=== PATIENT | female | born 1935 | race Caucasian/White ===

== ENCOUNTER 2019-07-02 08:45 | Inpatient (IN) | payer BC ==
[~2019-07-02] VITALS: Ht 167.6 cm; Wt 62.6 kg
[2019-07-02] MEDS ORDERED: MORPHINE SULFATE 4 MG/ML CPJ (NOT FOR IM USE) IV STA (10:19)
[2019-07-02] MEDS ORDERED: ONDANSETRON HCL 4MG/2ML INJ IV STA (10:19)
[2019-07-02] MEDS ORDERED: SODIUM CHLORIDE 0.9% 1,000 ML IV ONE (10:19)
[2019-07-02 10:57] LABS: BASOPHILS % 0.4 % (0.0-2.0); EOSINOPHILS % 0.1 % (0.0-5.0); HEMOGLOBIN. 12.9 g/dL (12.0-16.0); LYMPHOCYTES % 9.1 % (20.0-50.0); MEAN CORPUSCULAR HEMOGLOBIN 33.5 pg (28.0-32.0); MEAN CORPUSCULAR VOLUME 98.9 fL (81.0-99.0); MEAN PLATELET VOLUME 8.8 fl (7.4-10.4); MONOCYTES % 7.2 % (2.0-8.0); NEUTROPHILS % 83.2 % (40.0-76.0); PLATELET 169 x1000/uL (130-400); RED BLOOD CELL COUNT 3.85 mill/uL (4.2-5.4); RED CELL DISTRIBUTION WIDTH 13.8 % (11.6-14.6)
[2019-07-02 11:03] LABS: CHLORIDE 108 mEq/L (98-107)
[2019-07-02 11:07] LABS: INR 1.1; PARTIAL THROMBOPLASTIN TIME 28.5 sec (23.4-31.0); PROTHROMBIN TIME 11.2 sec (9.6-11.0)
[2019-07-02] MEDS ORDERED: DIPHENHYDRAMINE 50MG/ML VIAL IV PRN (17:00)
[2019-07-02] MEDS ORDERED: DOCUSATE SODIUM 100MG CAPSULE PO PRN (17:00)
[2019-07-02] MEDS ORDERED: CLONIDINE 0.1MG TABLET PO PRN (17:00)
[2019-07-02] MEDS ORDERED: ONDANSETRON HCL 4MG/2ML INJ IV PRN (17:00)
[2019-07-02] MEDS ORDERED: MORPHINE SULFATE 2 MG/ML CPJ (NOT FOR IM USE) IV PRN (17:00)
[2019-07-02] MEDS ORDERED: MAGNESIUM/ALUMINUM HYDROXIDE/SIMETHICONE 30ML UDC PO PRN (17:00)
[2019-07-02] MEDS ORDERED: HYDRALAZINE 20MG/ML VIAL IV PRN (17:00)
[2019-07-02] MEDS ORDERED: IPRATROPIUM/ALBUTEROL 0.5-3(2.5)MG/3ML NEB NEB PRN (17:00)
[2019-07-02] MEDS ORDERED: GUAIFENESIN 200MG/10ML SUGAR FREE UDC PO PRN (17:00)
[2019-07-02] MEDS ORDERED: NA PHOS,M-B/NA PHOS,DI-BA ENEMA 118ML PR PRN (17:00)
[2019-07-02] MEDS ORDERED: AMLODIPINE 5MG TABLET PO SCH (20:22)
[2019-07-02] MEDS ORDERED: CEFTRIAXONE 1 G PREMIX 50 ML IV NR (20:23)
[2019-07-02] MEDS ORDERED: FAMOTIDINE 20MG TABLET PO NR (20:25)
[2019-07-02] MEDS ORDERED: MORPHINE SULFATE 10 MG/ML CPJ IM NR (22:00)
[2019-07-03 01:49] LABS: CREATINE KINASE 503 IU/L (26-192)
[2019-07-03 01:50] LABS: CREATINE KINASE MB FRACTION 4.3 ng/mL (0.5-3.6)
[2019-07-03 05:10] VITALS: BP 136/63
[2019-07-03 05:11] VITALS: BP 139/63
[2019-07-03] MEDS: DEXT 5%/0.45% NACL 1000ML 1,000 ML IV SCH ×2 (07:04→13:19)
[2019-07-03 08:00] VITALS: BP 145/55
[2019-07-03] MEDS: CEFTRIAXONE 1 G PREMIX 50 ML IV SCH (08:40)
[2019-07-03] MEDS: AMLODIPINE 5MG TABLET PO SCH (11:41)
[2019-07-03 12:00] VITALS: BP 115/49
[2019-07-03] MEDS: LORAZEPAM 0.5MG TABLET PO PRN ×2 (13:18→20:42)
[2019-07-03] MEDS: ENOXAPARIN 40MG/0.4ML SYR SUBCUT SCH (13:23)
[2019-07-03 20:00] VITALS: BP 160/72
[2019-07-03] MEDS: FAMOTIDINE 20MG TABLET PO SCH (20:35)
[2019-07-04] VITALS: BP 145/110
[2019-07-04 04:00] VITALS: BP 150/55
[2019-07-04 08:00] VITALS: BP 136/80
[2019-07-04] MEDS: CEFTRIAXONE 1 G PREMIX 50 ML IV SCH (08:00)
[2019-07-04] MEDS: AMLODIPINE 5MG TABLET PO SCH (08:59)
[2019-07-04 12:00] VITALS: BP 156/63
[2019-07-04] MEDS ORDERED: ATOR20TA65 MT (12:28)
[2019-07-04] MEDS ORDERED: LISI10TA5 MT (12:32)
[2019-07-04] MEDS ORDERED: ESCI5TAB12 MT (12:32)
[2019-07-04] MEDS ORDERED: DONE5TAB26 MT (12:32)
[2019-07-04] MEDS ORDERED: ALEN10TA7 PO (12:32)
[2019-07-04] MEDS ORDERED: QUET50TA MT (12:32)
[2019-07-04] MEDS ORDERED: MECLIZINE 25MG TABLET PO PRN (13:00)
[2019-07-04] MEDS: DONEPEZIL HCL 5MG TABLET PO SCH (13:30)
[2019-07-04] MEDS: ENOXAPARIN 40MG/0.4ML SYR SUBCUT SCH (14:00)
[2019-07-04 16:00] VITALS: BP 160/85
[2019-07-04 20:00] VITALS: BP 150/77
[2019-07-04] MEDS: FAMOTIDINE 20MG TABLET PO SCH (21:29)
[2019-07-04] MEDS: HALOPERIDOL 0.5MG TABLET PO SCH (21:29)
[2019-07-04] MEDS: DEXT 5%/0.45% NACL 1000ML 1,000 ML IV SCH (21:30)
[2019-07-05] VITALS (7 sets, daily range): BP systolic 112–161; BP diastolic 55–73
[2019-07-05] MEDS: CEFTRIAXONE 1 G PREMIX 50 ML IV SCH (08:00)
[2019-07-05] MEDS: AMLODIPINE 5MG TABLET PO SCH ×2 (09:02→21:00)
[2019-07-05] MEDS: HALOPERIDOL 0.5MG TABLET PO SCH ×2 (09:02→21:00)
[2019-07-05] MEDS: DONEPEZIL HCL 5MG TABLET PO SCH (09:02)
[2019-07-05] MEDS ORDERED: CEFTRIAXONE 1 G PREMIX 50 ML IV SCH (13:00)
[2019-07-05] MEDS: LEVOFLOXACIN 250MG TABLET PO SCH (13:06)
[2019-07-05] MEDS: ENOXAPARIN 40MG/0.4ML SYR SUBCUT SCH (13:35)
[2019-07-05 14:04] LABS: BASOPHILS % 0.6 % (0.0-2.0); EOSINOPHILS % 0.7 % (0.0-5.0); HEMOGLOBIN. 13.2 g/dL (12.0-16.0); LYMPHOCYTES % 13.7 % (20.0-50.0); MEAN CORPUSCULAR HEMOGLOBIN 33.4 pg (28.0-32.0); MEAN PLATELET VOLUME 8.8 fl (7.4-10.4); MONOCYTES % 10.2 % (2.0-8.0); NEUTROPHILS % 74.8 % (40.0-76.0); PLATELET 191 x1000/uL (130-400); RED BLOOD CELL COUNT 3.94 mill/uL (4.2-5.4); RED CELL DISTRIBUTION WIDTH 13.7 % (11.6-14.6)
[2019-07-05] MEDS: DEXT 5%/0.45% NACL 1000ML 1,000 ML IV SCH (15:00)
[2019-07-05] MEDS ORDERED: LORAZEPAM 2MG/ML CPJ IM STA (18:08)
[2019-07-05] MEDS: FAMOTIDINE 20MG TABLET PO SCH (21:00)
[2019-07-06 04:00] VITALS: BP 112/62
[2019-07-06] MEDS: DEXT 5%/0.45% NACL 1000ML 1,000 ML IV SCH (07:40)
[2019-07-06 08:00] VITALS: BP 135/66
[2019-07-06] MEDS: DONEPEZIL HCL 5MG TABLET PO SCH (08:49)
[2019-07-06] MEDS: HALOPERIDOL 0.5MG TABLET PO SCH (08:50)
[2019-07-06] MEDS: AMLODIPINE 5MG TABLET PO SCH (08:50)
[2019-07-06] MEDS ORDERED: POTASSIUM CHLORIDE 20MEQ TABLET SR PO NR (11:00)
[2019-07-06] MEDS: LEVOFLOXACIN 250MG TABLET PO SCH (13:24)
[2019-07-06] MEDS: ENOXAPARIN 40MG/0.4ML SYR SUBCUT SCH (13:49)
[2019-07-06] MEDS: LORAZEPAM 0.5MG TABLET PO PRN (16:13)
[2019-07-06] MEDS ORDERED: HALOPERIDOL 0.5MG TABLET PO SCH (21:00)
== END 2019-07-06 16:52 | DRG 563 ==
LOC: ER 08:45 → SUPCPDRO 16:43 → 7WST 18:28 → EDBEDREQ 18:31 → ENRESERV 21:17 → CANRESERV 21:17 → EDBEDREQSVC 22:48 → EDBEDREQTM 22:48 → ENRESERV 07-03 04:19
PROVIDERS: ADMIT Internal Medicine; ATTEND Internal Medicine
DX: S82.141A Displaced bicondylar fracture of right tibia, initial encounter for closed fracture (principal); N39.0 Urinary tract infection, site not specified; M62.82 Rhabdomyolysis; E86.0 Dehydration; F03.90 Unspecified dementia, unspecified severity, without behavioral disturbance, psychotic disturbance, mood disturbance, and anxiety; F32.9 Major depressive disorder, single episode, unspecified; I10 Essential (primary) hypertension; Z96.641 Presence of right artificial hip joint; W01.0XXA Fall on same level from slipping, tripping and stumbling without subsequent striking against object, initial encounter; M85.80 Other specified disorders of bone density and structure, unspecified site; J45.909 Unspecified asthma, uncomplicated; K44.9 Diaphragmatic hernia without obstruction or gangrene; Z95.0 Presence of cardiac pacemaker; Y93.89 Activity, other specified; Y92.098 Other place in other non-institutional residence as the place of occurrence of the external cause; Y99.8 Other external cause status; Z88.8 Allergy status to other drugs, medicaments and biological substances
CPT/HCPCS: 36415; 71045; 72170; 73502; 73552; 73560; 73590; 73610; 73700; 74176; 80048; 80053; 82550; 82553; 84484; 85025; 86850; 86900; 93005; 93306; 93880; 93970; 96361; 96372; 96374; 96375; 97162; 99285; J0696; J1200; J1650; J2060; J2270; J2405; J7030; J7040; L1830

== ENCOUNTER 2019-09-09 00:26 | Inpatient (IN) | payer BC, MEDICARE ==
[~2019-09-09] VITALS: Ht 162.6 cm; Wt 59.0 kg
[~2019-09-09 00:26] MED LIST: ALEN10TA25 PO; ATOR20TA65 MT; DONE5TAB26 MT; ESCI5TAB12 MT; LISI10TA5 MT; QUET50TA MT
[2019-09-09 01:27] LABS: BASOPHILS % 0.2 % (0.0-2.0); EOSINOPHILS % 0.7 % (0.0-5.0); HEMATOCRIT. 38.2 % (36.0-48.0); HEMOGLOBIN. 13.1 g/dL (12.0-16.0); LYMPHOCYTES % 13.3 % (20.0-50.0); MEAN CORPUSCULAR HEMOGLOBIN 33.3 pg (28.0-32.0); MEAN CORPUSCULAR VOLUME 97.4 fL (81.0-99.0); MEAN PLATELET VOLUME 8.7 fl (7.4-10.4); MONOCYTES % 7.8 % (2.0-8.0); PLATELET 161 x1000/uL (130-400); RED BLOOD CELL COUNT 3.93 mill/uL (4.2-5.4); RED CELL DISTRIBUTION WIDTH 13.6 % (11.6-14.6)
[2019-09-09 01:29] LABS: CHLORIDE 110 mEq/L (98-107)
[2019-09-09 02:00] LABS: PROTHROMBIN TIME 11.3 sec (9.6-11.0)
[2019-09-09 03:44] LABS: CLARITY URINE CLEAR (CLEAR); COLOR URINE YELLOW (YELLOW); KETONES URINE NEGATIVE (NEGATIVE); LEUKOCYTE ESTERASE URINE NEGATIVE (NEGATIVE); NITRITE URINE NEGATIVE (NEGATIVE); OCCULT BLOOD URINE NEGATIVE (NEGATIVE); PH URINE 6.5 (4.5-8.0); PROTEIN URINE NEGATIVE (NEGATIVE); SPECIFIC GRAVITY URINE 1.017 (1.005-1.030); UROBILINOGEN URINE 0.2 E.U./dL (0.2-1.0)
[2019-09-09 09:40] VITALS: BP 134/53
[2019-09-09 11:20] VITALS: BP 134/53
[2019-09-09] MEDS ORDERED: ASPI-1160 PO (11:30)
[2019-09-09] MEDS ORDERED: ZOLP5TAB8 PO (11:30)
[2019-09-09] MEDS ORDERED: ALEN35TA24 PO (11:30)
[2019-09-09] MEDS ORDERED: RISP1TAB26 PO (11:30)
[2019-09-09] MEDS ORDERED: AMLO5TAB88 PO (11:30)
[2019-09-09 12:00] VITALS: BP 147/65
[2019-09-09 12:13] VITALS: BP 147/65
== END 2019-09-09 12:52 | disposition home health service (06) | DRG 149 ==
LOC: ER 00:26 → EDBEDREQTM 01:09 → 7WST 02:28 → EDBEDREQTM 02:39 → EDBEDREQ 02:39 → ENRESERV 07:49
PROVIDERS: ADMIT Internal Medicine; ATTEND Internal Medicine
DX: R42 Dizziness and giddiness (principal); E86.0 Dehydration; F03.90 Unspecified dementia, unspecified severity, without behavioral disturbance, psychotic disturbance, mood disturbance, and anxiety; F31.9 Bipolar disorder, unspecified; I10 Essential (primary) hypertension; I25.10 Atherosclerotic heart disease of native coronary artery without angina pectoris; J45.909 Unspecified asthma, uncomplicated; R26.9 Unspecified abnormalities of gait and mobility; W06.XXXA Fall from bed, initial encounter; Y93.89 Activity, other specified; Y92.89 Other specified places as the place of occurrence of the external cause; Y99.8 Other external cause status; Z88.8 Allergy status to other drugs, medicaments and biological substances; Z79.899 Other long term (current) drug therapy; Z95.0 Presence of cardiac pacemaker
CPT/HCPCS: 36415; 71045; 72170; 80053; 81003; 85025; 93005; 99285